=== PATIENT | female | born 1995 | race African-American/Black ===

== ENCOUNTER 2024-04-02 04:42 | Emergency (ER) | payer SELFPAY ==
[~2024-04-02] VITALS: Ht 170.2 cm; Wt 100.0 kg
[2024-04-02 04:49] VITALS: BP 122/81; PULSE 126; RESP 18; TEMP 98.2; O2SAT 98
[2024-04-02] MEDS: IBUPROFEN 600MG TABLET PO STA (05:20)
[2024-04-02 07:16] LABS: BASOPHILS % 0.4 % (0.0-2.0); EOSINOPHILS % 1.2 % (0.0-5.0); HEMATOCRIT. 35.3 % (36.0-48.0); HEMOGLOBIN. 11.7 g/dL (12.0-16.0); LYMPHOCYTES % 21.3 % (20.0-50.0); MEAN CORPUSCULAR HEMOGLOBIN 30.3 pg (28.0-32.0); MEAN CORPUSCULAR HGB CONC 33.2 g/dL (31.0-37.0); MEAN CORPUSCULAR VOLUME 91.4 fL (81.0-99.0); MEAN PLATELET VOLUME 6.4 fl (7.4-10.4); MONOCYTES % 6.6 % (2.0-8.0); NEUTROPHILS % 70.5 % (40.0-76.0); PLATELET 466 x1000/uL (130-400); RED BLOOD CELL COUNT 3.87 mill/uL (4.2-5.4); RED CELL DISTRIBUTION WIDTH 17.4 % (11.6-14.6); WHITE BLOOD COUNT 9.6 x1000/uL (4.5-11.0)
[2024-04-02 07:33] LABS: CALCIUM 9.3 mg/dL (8.7-10.4); CARBON DIOXIDE 22 mEq/L (21-32); CHLORIDE 107 mEq/L (98-107); POTASSIUM 2.9 mEq/L (3.5-5.1); SODIUM 138 mEq/L (136-145)
[2024-04-02 07:38] LABS: CREATININE 0.6 mg/dL (0.6-1.0)
[2024-04-02 07:39] LABS: GLUCOSE 95 mg/dL (70-105)
[2024-04-02 07:41] LABS: UREA NITROGEN BLOOD < 5 mg/dL (9-23)
[2024-04-02 07:56] LABS: HCG SCREEN NEGATIVE
[2024-04-02] MEDS ORDERED: POTASSIUM CHLORIDE 20MEQ/PACKET PO ONE (08:30)
== END 2024-04-02 11:43 | disposition left against medical advice (07) ==
LOC: ER 04:42
DX: S09.90XA Unspecified injury of head, initial encounter (principal); E87.6 Hypokalemia; V49.59XA Passenger injured in collision with other motor vehicles in traffic accident, initial encounter; Y93.89 Activity, other specified; Y92.89 Other specified places as the place of occurrence of the external cause; Y99.8 Other external cause status
CPT/HCPCS: 80048; 84703; 85025; 36415; 71045; 70450; 72125; 99284; Z7610 ×2